=== PATIENT | male | born 1965 | race Caucasian/White ===

== ENCOUNTER 2021-01-09 13:09 | Observation (INO) ==
[2021-01-09] MEDS ORDERED: Ketamine *HR* 500 MG/10 ML MDV IVP ONE (14:21)
[2021-01-09] MEDS ORDERED: Ketamine *HR* 500 MG/10 ML MDV ONE (14:41)
[2021-01-09] MEDS ORDERED: 0.9 % Sodium Chloride 1,000 ML ONE (14:45)
[2021-01-09 15:45] LABS: Basophils # 0.1 K/mcL (0.0-0.2); Basophils % 0.7 %; Eosinophils # 0.1 K/mcL (0.0-0.6); Eosinophils % 0.5 %; Hematocrit 48.7 % (37.5-50.1); Hemoglobin 16.5 g/dL (12.9-16.9); Immature Granulocytes % 0.3 % (0-4); Lymphocytes # 3.2 K/mcL (0.6-4.6); Lymphocytes % 21.5 %; Mean Corpuscular HGB Conc 33.9 g/dL (31.6-35.5); Mean Corpuscular Hemoglobin 28.5 pg (28.0-33.3); Mean Corpuscular Volume 84.1 fL (83.0-100.0); Mean Platelet Volume 10.5 fL (9.4-12.4); Monocytes % 6.6 %; Neutrophils # 10.6 K/mcL (1.6-8.9); Platelet Count 241 K/mcL (140-400); Red Blood Count 5.79 M/mcL (4.19-5.50); Red Cell Distribution Width 12.3 % (11.5-14.5); Segmented Neutrophils % 70.4 %
[2021-01-09 15:49] LABS: INR 1.1; Prothrombin Time 12.2 Seconds (9.4-12.1)
[2021-01-09 15:51] LABS: Activated Partial Thrombo Time 24.7 Seconds (26.0-36.0)
[2021-01-09 15:57] LABS: BUN/Creatinine Ratio 16 (6-26); Blood Urea Nitrogen 18 mg/dL (6-20); Calcium 10.1 mg/dL (8.6-10.3); Carbon Dioxide 22 mEq/L (23-29); Chloride 104 mEq/L (98-107); Glucose 123 mg/dL (70-105); Osmolality,Calculated 283 (280-300); Potassium 3.7 mEq/L (3.5-5.1); Sodium 135 mEq/L (136-145); eGFR For African Americans > 60 (> 60); eGFR For Non-African Americans > 60 (> 60)
[2021-01-09] MEDS ORDERED: Ondansetron 4 MG/2 ML VIAL IVP PRN (16:04)
[2021-01-09] MEDS ORDERED: Acetaminophen 325 MG TABLET PO PRN (16:04)
[2021-01-09] MEDS ORDERED: Naloxone 0.4 MG/ML INJ IVP PRN (16:04)
[2021-01-09] MEDS: *HR* Heparin 5,000 UNIT/ML VIAL SQ SCH (17:49)
[2021-01-09] MEDS ORDERED: Ketorolac 15 MG/ML VIAL IVP ONE (17:56)
[2021-01-09] MEDS ORDERED: *HR* HYDROmorphone (PF) 1 MG/ML SYRINGE IVP PRN (20:33)
[2021-01-09] MEDS ORDERED: Melatonin 3 MG TABLET PO PRN (20:35)
[2021-01-09] MEDS: *HR* HYDROmorphone (PF) 1 MG/ML SYRINGE IVP PRN (21:27)
[2021-01-10 01:49] LABS: Basophils # 0.1 K/mcL (0.0-0.2); Basophils % 0.7 %; Eosinophils # 0.1 K/mcL (0.0-0.6); Eosinophils % 0.9 %; Hematocrit 44.6 % (37.5-50.1); Immature Granulocytes % 0.3 % (0-4); Lymphocytes # 2.7 K/mcL (0.6-4.6); Mean Corpuscular HGB Conc 33.6 g/dL (31.6-35.5); Mean Corpuscular Hemoglobin 28.9 pg (28.0-33.3); Mean Corpuscular Volume 85.9 fL (83.0-100.0); Mean Platelet Volume 10.9 fL (9.4-12.4); Monocytes # 0.9 K/mcL (0.0-1.3); Monocytes % 8.6 %; Neutrophils # 6.9 K/mcL (1.6-8.9); Platelet Count 205 K/mcL (140-400); Red Blood Count 5.19 M/mcL (4.19-5.50); Red Cell Distribution Width 12.3 % (11.5-14.5); Segmented Neutrophils % 64.5 %; White Blood Count 10.6 K/mcL (4.3-11.1)
[2021-01-10 02:06] LABS: BUN/Creatinine Ratio 16 (6-26); Blood Urea Nitrogen 18 mg/dL (6-20); Calcium 9.5 mg/dL (8.6-10.3); Carbon Dioxide 22 mEq/L (23-29); Chloride 104 mEq/L (98-107); Glucose 126 mg/dL (70-105); Osmolality,Calculated 285 (280-300); Potassium 3.7 mEq/L (3.5-5.1); Sodium 136 mEq/L (136-145); eGFR For African Americans > 60 (> 60); eGFR For Non-African Americans > 60 (> 60)
[2021-01-10] MEDS: *HR* Heparin 5,000 UNIT/ML VIAL SQ SCH ×3 (03:27→21:28)
[2021-01-10] MEDS: *HR* HYDROmorphone (PF) 1 MG/ML SYRINGE IVP PRN (03:27)
[2021-01-10] MEDS ORDERED: Ketorolac 15 MG/ML VIAL IVP ONE (07:59)
[2021-01-10] MEDS ORDERED: Lidocaine 1% 20 ML MDV ONE (16:33)
[2021-01-10] MEDS ORDERED: Dexamethasone 4 MG/ML VIAL ONE (16:34)
[2021-01-10] MEDS ORDERED: *HR* Midazolam HCl 2 MG/2 ML VIAL ONE (16:34)
[2021-01-10] MEDS ORDERED: Lidocaine -MPF 2% 2 ML VIAL ONE (16:34)
[2021-01-10] MEDS ORDERED: Ondansetron 4 MG/2 ML VIAL ONE (16:34)
[2021-01-10] MEDS ORDERED: *HR* FentaNYL (PF) 100 MCG/2 ML VIAL ONE (16:34)
[2021-01-10] MEDS ORDERED: *HR* Propofol 200 MG/20 ML VIAL IVP ONE ×2 (16:34→18:33)
[2021-01-10] MEDS ORDERED: Ropivacaine/PF 0.5% 30 ML VIAL ONE (16:45)
[2021-01-10] MEDS ORDERED: Clindamycin 900 MG/50 ML 900 MG/50 ML IV.SOLN IVPB ONE (17:34)
[2021-01-10] MEDS ORDERED: *HR* Succinylcholine 200 MG/10 ML VIAL IVP ONE (17:40)
[2021-01-10] MEDS ORDERED: *HR* OxyCODONE Immed Rel 5 MG TABLET PO PRN ×2 (17:43→20:24)
[2021-01-10] MEDS ORDERED: *HR* HYDROmorphone PF 0.5 MG/0.5 ML SYRINGE IVP PRN ×2 (17:43→20:24)
[2021-01-10] MEDS ORDERED: Ondansetron 4 MG/2 ML VIAL IVP PRN ×2 (17:43→20:24)
[2021-01-10] MEDS ORDERED: Melatonin 3 MG TABLET PO PRN (20:24)
[2021-01-10] MEDS ORDERED: *HR* HYDROmorphone (PF) 1 MG/ML SYRINGE IVP PRN (20:24)
[2021-01-10] MEDS ORDERED: Acetaminophen 325 MG TABLET PO PRN (20:24)
[2021-01-10] MEDS ORDERED: Naloxone 0.4 MG/ML INJ IVP PRN (20:24)
[2021-01-11] MEDS: *HR* Heparin 5,000 UNIT/ML VIAL SQ SCH (06:24)
[2021-01-11 11:35] VITALS: BP 115/57
== END 2021-01-11 14:00 | disposition home or self-care (01) ==
LOC: 3NENU 13:09 → EMEROOARM 13:09 → SUATTDRO 16:09 → 3NENU 16:37 → SUATTDRO 18:57
PROVIDERS: ADMIT Internal Medicine; ATTEND Internal Medicine